=== PATIENT | female | born 1980 | race African-American/Black ===

== ENCOUNTER 2017-12-16 20:12 | Emergency (ER) | payer OTHER ==
[2017-12-16 20:18] VITALS: BMI 30.8
--- NOTE | 2017-12-16 20:26 | PDOC ---
Rapid Medical Evaluation Time Seen by Provider: 12/16/17 20:14 Medical Evaluation: Allergies Allergy/AdvReac Type Severity Reaction Status Date / Time No Known Allergies Allergy Verified 01/08/15 12:39 12/16/17 20:14 I have performed a brief in-person evaluation of this patient. The patient presents with a chief complaint of: L knee surgery 12/08, went to PT today, dizzy, headache since, +palpitations, "some chest discomfort" Pertinent physical exam findings: I have ordered the following: The patient will proceed to the ED for further evaluation. Discharge Disposition - Diagnosis Shortness of breath - Referrals - Patient Instructions - Post Discharge Activity
--- NOTE | 2017-12-16 21:16 | PDOC ---
History of Present Illness - General Chief Complaint: Headache Stated Complaint: PAIN Time Seen by Provider: 12/16/17 20:14 History Source: Patient - History of Present Illness Initial Comments: 12/16/17 23:05 37-year-old female complaining of dizziness, headache and chest pressure for 1 day. Patient reports status post knee surgery 1 week ago currently in physical therapy. Patient reports that she was in physical therapy today. Patient reports that she ate today. Reports the dizziness is worse from going from lying to sitting. She hasn't been taking her pain medication prescribed for surgery in order to prevent addiction. Denies pleuritic chest pain, diaphoresis , shortness of breath, nausea, vomiting, urinary symptoms, abdominal pain Past History - Past Medical History Allergies/Adverse Reactions: Allergies Allergy/AdvReac Type Severity Reaction Status Date / Time No Known Allergies Allergy Verified 12/16/17 20:18 Home Medications: Ambulatory Orders No Home Medications 0 dose .ROUTE UTDICT 09/26/12 Amoxicillin - [Amoxicillin 500mg Capsule -] 500 mg PO TID #30 capsule 09/29/12 Naproxen [Naprosyn -] 500 mg PO BID PRN #14 tablet 01/08/15 COPD: No Thyroid Disease: Yes (no meds) - Surgical History Other Surgical History: 12/16/17 23:10 left knee surgery s/p fall and fracture - Suicide/Smoking/Psychosocial Hx Smoking Status: No Smoking History: Never smoked Have you smoked in the past 12 months: No Number of Cigarettes Smoked Daily: 0 Information on smoking cessation initiated: No Hx Alcohol Use: No Drug/Substance Use Hx: No Substance Use Type: None Hx Substance Use Treatment: No Review of Systems - Review of Systems Able to Perform ROS?: Yes Is the patient limited Peruvian proficient: No Constitutional: No: Symptoms Reported, See HPI, Chills, Diaphoresis, Fever, Loss of Appetite, Malaise, Night Sweats, Weakness, Weight Stable, Unintentional Wgt. Loss, Unexplained wgt Loss, Other Cardiac (ROS): Yes: Chest Pain ABD/GI: No: Symptoms Reported, See HPI, Abdominal Distended, Abd. Pain w/ defecation, Blood Streaked Bowels, Constipated, Diarrhea, Difficulty Swallowing , Nausea, Poor Appetite, Poor Fluid Intake, Rectal Bleeding, Vomiting, Indigestion, Abdominal cramping, Tarry Stools, Other : No: Symptoms Reported, See HPI, Burning, Dysuria, Discharge, Frequency, Flank Pain, Hematuria, Incontinence, Pain, Urgency, Testicular Mass, Testicular Swelling, Lesions, Testicular Pain, Other Neurological: Yes: Headache, Dizziness. No: Symptoms reported, See HPI, Numbness, Paresthesia, Pre-Existing Deficit, Seizure, Tingling, Tremors, Weakness, Unsteady Gait, Ataxia, Other *Physical Exam - Vital Signs Last Vital Signs Temp Pulse Resp BP Pulse Ox 86 16 146/87 100 12/16/17 20:15 12/16/17 20:15 12/16/17 20:15 12/16/17 20:15 - Physical Exam General Appearance: Yes: Appropriately Dressed Respiratory/Chest: positive: Lungs Clear, Normal Breath Sounds Cardiovascular: positive: Regular Rhythm, Regular Rate Gastrointestinal/Abdominal: positive: Normal Bowel Sounds, Soft Extremity: positive: Other (left knee mild swelling. suture site clean , dry and intact. 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, Fully Oriented, Alert, Normal Mood/ Affect, Motor Strength 5/5 Heart Score/ECG Review - ECG Intrepretation Rhythm: Regular Rhythm Comment:: 12/16/17 23:10 NSR: 83 bpm ED Treatment Course - LABORATORY CBC & Chemistry Diagram: 12/16/17 21:55 12/16/17 21:55 *DC/Admit/Observation/Transfer Diagnosis at time of Disposition: Headache Qualifiers: Headache type: tension-type Headache chronicity pattern: acute headache Intractability: not intractable Qualified Code(s): G44.209 - Tension-type headache, unspecified, not intractable - Discharge Dispostion Disposition: HOME - Referrals - Patient Instructions Printed Discharge Instructions: Tension Headache Additional Instructions: drink plenty of fluids take ibuprofen every 6 hours as needed for pain follow up with your doctor return to the ER if symptoms worsen. - Post Discharge Activity
[2017-12-16] MEDS ORDERED: SODIUM CHLORIDE 1,000 ML IV STA (21:23)
[2017-12-16] MEDS ORDERED: METOCLOPRAMIDE HCL INJECTION 10 MG/2 ML VIAL IVPB ONE (21:23)
[2017-12-16] MEDS ORDERED: METOCLOPRAMIDE HCL INJECTION 10 MG/2 ML VIAL ONE (21:41)
--- NOTE | 2017-12-16 22:02 | PDOC ---
*Physical Exam - Vital Signs Last Vital Signs Temp Pulse Resp BP Pulse Ox 86 16 146/87 100 12/16/17 20:15 12/16/17 20:15 12/16/17 20:15 12/16/17 20:15 ED Treatment Course - LABORATORY CBC & Chemistry Diagram: 12/16/17 21:55 12/16/17 21:55 Medical Decision Making - Medical Decision Making 12/16/17 22:01 agree with care from JEWEL Llamas *DC/Admit/Observation/Transfer Diagnosis at time of Disposition: Shortness of breath - Referrals - Patient Instructions - Post Discharge Activity
[2017-12-16 22:07] LABS: BASO % 0.3 % (0-2.0); EOS % 1.8 % (0-4.5); HEMATOCRIT 36.2 % (32.4-45.2); HEMOGLOBIN 12.1 GM/dL (10.7-15.3); LYMPH % 30.9 % (8-40); MCH 27.3 pg (25.7-33.7); MCHC 33.4 g/dl (32.0-36.0); MEAN CELL VOLUME 81.5 fl (80-96); MEAN PLT VOLUME 8.7 fl (7.5-11.1); MONO % 9.9 % (3.8-10.2); NEUT % 57.1 % (42.8-82.8); PLATELET COUNT 238 K/MM3 (134-434); RBC 4.44 M/mm3 (3.60-5.2); RDW 19.1 % (11.6-15.6); WHITE BLOOD COUNT 6.5 K/mm3 (4.0-10.0)
[2017-12-16 22:33] LABS: ALBUMIN 3.5 g/dl (3.4-5.0); ALK PHOS 82 U/L (45-117); ANION GAP 4 (8-16); BLOOD UREA NITROGEN 11 mg/dL (7-18); CALCIUM 9.1 mg/dL (8.5-10.1); CHLORIDE 104 mmol/L (98-107); CO2 29 mmol/L (21-32); CREATININE 0.8 mg/dL (0.55-1.02); GLUCOSE,RANDOM 91 mg/dL (74-106); SGPT/ALT 22 U/L (12-78); SODIUM 137 mmol/L (136-145); TOT PROT 7.9 g/dl (6.4-8.2)
[2017-12-16 22:41] LABS: BILIRUBIN,TOTAL < 0.1 mg/dL (0.2-1.0)
[2017-12-16 22:42] LABS: POTASSIUM 4.6 mmol/L (3.5-5.1); SGOT/AST 16 U/L (15-37)
[2017-12-16 22:46] VITALS: BP 111/74; PULSE 69
[2017-12-16 22:56] LABS: INR 1.04 (0.82-1.09); PROTHROMBIN TIME (PATIENT) 11.7 SEC (9.98-11.88)
[2017-12-16] MEDS ORDERED: KETOROLAC TROMETHAMINE 30 MG/1 ML VIAL IVPUSH ONE (23:04)
[2017-12-16] MEDS ORDERED: KETOROLAC TROMETHAMINE 30 MG/1 ML VIAL ONE (23:10)
--- NOTE | 2017-12-17 15:55 | EKG ---
Test Reason : Blood Pressure : / mmHG Vent. Rate : 083 BPM Atrial Rate : 083 BPM P-R Int : 166 ms QRS Dur : 072 ms QT Int : 374 ms P-R-T Axes : 057 016 039 degrees QTc Int : 439 ms NORMAL SINUS RHYTHM POSSIBLE LEFT ATRIAL ENLARGEMENT BORDERLINE ECG NO PREVIOUS ECGS AVAILABLE Confirmed by ONESIMO PILLAI, MARYCRUZ ([id number]) on 12/17/2017 3:55:23 PM Referred By: Confirmed By:MARYCRUZ ECHOLS MD
== END 2017-12-17 00:36 | disposition home or self-care (01) ==
LOC: JER 20:12
PROC: 3E033GC Introduction of Other Therapeutic Substance into Peripheral Vein, Percutaneous Approach (ICD-10-PCS; principal; 2017-12-16)
PROC: 3E0337Z Introduction of Electrolytic and Water Balance Substance into Peripheral Vein, Percutaneous Approach (ICD-10-PCS; 2017-12-16)
DX: G44.209 Tension-type headache, unspecified, not intractable (principal)
CPT/HCPCS: 36415; 80053; 82550; 84484; 84703; 85025; 85379; 85610; 93005; 93010; 99283-25; J7030

== ENCOUNTER 2019-11-15 23:02 | Emergency (ER) | payer OTHER ==
[2019-11-15 23:11] VITALS: BP 124/85; PULSE 99; TEMP 97.6; BMI 30.8
--- NOTE | 2019-11-16 01:20 | PDOC ---
History of Present Illness - General Chief Complaint: Injury Stated Complaint: FALL Time Seen by Provider: 11/16/19 01:17 History Source: Patient Exam Limitations: No Limitations - History of Present Illness Initial Comments: 11/16/19 03:43 39y F with PMH of hyperthyroidism presenting to the ER with complaints of R knee pain after falling. Pt states she was at work when she felt her R knee lock and she fell onto her knees. Denies hitting her head or LOC. She states the pain started at 10pm (6 hours after the incident). States the pain is radiating up to her back. Denies numbness/tingling, hearing a pop. Pain is worse with full extension. She is still able to ambulate and bear weight but she has pain with it. She had knee pain in the past but does not recall which knee. Has an orthopedist in [place]. Past History - Past Medical History Allergies/Adverse Reactions: Allergies Allergy/AdvReac Type Severity Reaction Status Date / Time No Known Allergies Allergy Verified 11/15/19 23:11 Home Medications: Ambulatory Orders No Home Medications 0 dose .ROUTE UTDICT 09/26/12 Amoxicillin - [Amoxicillin 500mg Capsule -] 500 mg PO TID #30 capsule 09/29/12 Naproxen [Naprosyn -] 500 mg PO BID PRN #14 tablet 01/08/15 Ibuprofen 600 mg PO TID #15 tablet 11/16/19 COPD: No Thyroid Disease: Yes (no meds) - Psycho Social/Smoking Cessation Hx Smoking Status: No Smoking History: Never smoked Have you smoked in the past 12 months: No Number of Cigarettes Smoked Daily: 0 Information on smoking cessation initiated: No Hx Alcohol Use: No Drug/Substance Use Hx: No Substance Use Type: None Hx Substance Use Treatment: No Review of Systems - Review of Systems Constitutional: No: Symptoms Reported HEENTM: No: Symptoms Reported Respiratory: No: Symptoms reported Cardiac (ROS): No: Symptoms Reported ABD/GI: No: Symptoms Reported : No: Symptoms Reported Musculoskeletal: Yes: See HPI Integumentary: No: Symptoms Reported Neurological: No: Symptoms reported *Physical Exam - Vital Signs Last Vital Signs Temp Pulse Resp BP Pulse Ox 97.6 F 99 H 17 124/85 100 11/15/19 23:09 11/15/19 23:09 11/15/19 23:09 11/15/19 23:09 11/15/19 23:09 - Physical Exam General Appearance: Yes: Nourished, Appropriately Dressed. No: Apparent Distress HEENT: positive: EOMI, MEENA Neck: positive: Trachea midline, Supple Respiratory/Chest: positive: Lungs Clear, Normal Breath Sounds Cardiovascular: positive: Regular Rhythm, Regular Rate Vascular Pulses: Dorsalis-Pedis (R): 2+, Doralis-Pedis (L): 2+ Gastrointestinal/Abdominal: positive: Soft. negative: Tender Musculoskeletal: positive: Other (R knee has suprapatellar swelling without effusion, redness. No skin changes. full ROM of knee. pain with passive and active extension. negative xin test.negative SLR. no ankle, foot or hip tenderness or pain with active/passive ROM. ). 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 ddx includes fracture, dislocation, ligamentous injury, sprain, effusion. low suspicion for septic joint, effusion. likely ligamentous injury. -xr, lidoderm, robaxin, tylenol xr negative for acute findings. normal joint spaces, no dislocations or fractures per my read. pt states pain is improved. Seen ambulating to bathroom. declines knee immobilizer. has orthopedist in [place] will dc home. rx for ibuprofen sent. Discharge - Discharge Information Problems reviewed: Yes Clinical Impression/Diagnosis: Knee pain Qualifiers: Chronicity: acute Laterality: right Qualified Code(s): M25.561 - Pain in right knee Condition: Good Disposition: HOME - Admission No - Additional Discharge Information Prescriptions: Ibuprofen 600 mg PO TID #15 tablet - Follow up/Referral Referrals: Mayte Collins [Primary Care Provider] - Jericho Garcia DO [Staff Physician] - Kendall Gray DO [Staff Physician] - - Patient Discharge Instructions Patient Printed Discharge Instructions: DI for Knee Pain Additional Instructions: You were seen in the ER for knee pain. There is no fracture or dislocation. I recommend that you take ibuprofen or Tylenol for the pain as needed. You can apply ice for the swelling. Please make an appointment with your orthopedist this week regarding your knee pain. Bear weight as tolerated. Come back to the ER if you have worsening pain, are unable to walk or if any new or concerning symptom develops. Thank you - Post Discharge Activity Work/Back to School Note: Back to Work
--- NOTE | 2019-11-16 01:25 | PDOC ---
Attending Attestation - Resident Resident Name: ShamaAilyn - ED Attending Attestation I have performed the following: I have examined & evaluated the patient, The case was reviewed & discussed with the resident, I agree w/resident's findings & plan - HPI HPI: 11/16/19 02:30 see resident hpi - Physicial Exam PE: 11/16/19 02:30 see resident exam - Medical Decision Making 11/16/19 02:31 39-year-old female status post fall with right knee pain Plan for x-ray to rule out fracture Patient is weightbearing with normal neurovascular status We will plan for DC with outpatient orthopedic follow-up
[2019-11-16] MEDS ORDERED: ACETAMINOPHEN 500 MG TABLET (FP) PO ONE (01:32)
[2019-11-16] MEDS ORDERED: LIDOCAINE 5% TOPICAL PATCH TP ONE (01:32)
[2019-11-16] MEDS ORDERED: METHOCARBAMOL 500 MG TABLET PO ONE (01:32)
[2019-11-16] MEDS ORDERED: LIDOCAINE 5% TOPICAL PATCH ONE (01:38)
[2019-11-16] MEDS ORDERED: ACETAMINOPHEN 325 MG TABLET (FP) ONE (01:38)
[2019-11-16] MEDS ORDERED: METHOCARBAMOL 500 MG TABLET ONE (01:38)
[2019-11-16] MEDS ORDERED: LIDOCAINE PATCH REMOVAL MC SCH (22:00)
== END 2019-11-16 03:37 | disposition home or self-care (01) ==
LOC: JER 23:02
DX: Z04.3 Encounter for examination and observation following other accident (principal); M25.561 Pain in right knee; W18.39XA Other fall on same level, initial encounter; Y93.89 Activity, other specified; Y92.511 Restaurant or cafe as the place of occurrence of the external cause; Y99.0 Civilian activity done for income or pay
CPT/HCPCS: 73562-TC-RT-FY; 99283-25

== ENCOUNTER 2021-02-07 21:12 | Emergency (ER) | payer BC ==
[2021-02-07 21:22] VITALS: BP 126/81; PULSE 89; TEMP 98.9; BMI 30.1
== END 2021-02-07 23:00 | disposition home or self-care (01) ==
LOC: JER 21:12
DX: Z71.1 Person with feared health complaint in whom no diagnosis is made (principal)
CPT/HCPCS: 99282-25

== ENCOUNTER 2022-02-26 04:47 | Emergency (ER) | payer BC ==
[2022-02-26 05:20] VITALS: BP 117/82; PULSE 84; TEMP 98.6; BMI 28.8
[2022-02-26] MEDS ORDERED: LIDOCAINE 5% TOPICAL PATCH TP ONE (05:29)
[2022-02-26] MEDS ORDERED: KETOROLAC TROMETHAMINE 30 MG/1 ML VIAL IVPUSH ONE (05:29)
[2022-02-26] MEDS ORDERED: diazePAM CARPU-JECT 10 MG/2 ML DISP.SYRIN IVPUSH ONE (05:29)
[2022-02-26] MEDS ORDERED: DEXAMETHASONE SOD PHOSPHATE 10 MG/1 ML VIAL IVPUSH ONE (05:30)
[2022-02-26] MEDS ORDERED: diazePAM CARPU-JECT 10 MG/2 ML DISP.SYRIN ONE (05:34)
[2022-02-26] MEDS ORDERED: KETOROLAC TROMETHAMINE 30 MG/1 ML VIAL ONE (05:35)
[2022-02-26] MEDS ORDERED: LIDOCAINE 5% TOPICAL PATCH ONE (05:35)
[2022-02-26] MEDS ORDERED: DEXAMETHASONE SOD PHOSPHATE 10 MG/1 ML VIAL ONE (05:35)
[2022-02-26] MEDS ORDERED: LIDOCAINE PATCH REMOVAL MC SCH (22:00)
== END 2022-02-26 06:47 | disposition home or self-care (01) ==
LOC: JER 04:47
PROC: 3E033GC Introduction of Other Therapeutic Substance into Peripheral Vein, Percutaneous Approach (ICD-10-PCS; principal; 2022-02-26)
DX: M62.830 Muscle spasm of back (principal)
CPT/HCPCS: 99284-25; J1100

== ENCOUNTER 2023-04-22 19:27 | Emergency (ER) | payer BC, OTHER ==
[2023-04-22 19:31] VITALS: BP 124/79; PULSE 76; RESP 18; TEMP 98.4; BMI 31.5
== END 2023-04-22 23:26 | disposition home or self-care (01) ==
LOC: JERFT 19:27
DX: S69.91XA Unspecified injury of right wrist, hand and finger(s), initial encounter (principal); M25.531 Pain in right wrist; M79.641 Pain in right hand; M25.431 Effusion, right wrist; W01.0XXA Fall on same level from slipping, tripping and stumbling without subsequent striking against object, initial encounter
CPT/HCPCS: 73110-TC-RT-FY; 73130-TC-RT-FY; 99283-25